=== PATIENT | female | born 1995 | race Two or more races ===

== ENCOUNTER 2016-07-03 03:11 | Emergency (ER) | payer OTHER ==
[~2016-07-03] VITALS: Ht 157.5 cm; Wt 54.4 kg
--- NOTE | 2016-07-03 03:15 | NUR ---
BIB [facility] 78 HERE FOR "SEIZURE WHILE AT [facility] [employer] WITH BOYFRIEND". ALTERED. PLACED IN ROOM; ON OXYGEN AND MONITOR. SEIZURE PRECS IN PLACE. NO ORAL TRAUMA OR INCONTINENCE NOTED AT THIS TIME. NON DIAPHORETIC. RESP EVEN AND UNLABORED. S/O AT BEDSIDE. CARE PLAN DISCUSSED AND AWAITING MD PATEL.
--- NOTE | 2016-07-03 03:20 | NUR ---
PT HAD A 20 SEC SEIZURE AND UPON MD ARRIVAL PT HAD STOPPED SEIZING. ATIVAN WITHHELD AT THIS TIME UPON DR. CHAUDHRY. PT MONITORED CLOSELY. NO ORAL TRAUMA NOTED. NON DIAPHROETIC. RESP EVEN AND UNLABORED.
[2016-07-03] MEDS ORDERED: LACO1TAB PO (03:23)
--- NOTE | 2016-07-03 03:28 | NUR ---
UPON CHECKING ON PT AGAIN; PT WASNT IN THE ROOM. ALL MONITOR LEADS AND VS MONITOR AND PULSE OXIMETRY WERE OFF. PT AMBULATED TO RESTROOM AND WITH BOYFRIEND.
--- NOTE | 2016-07-03 03:40 | NUR ---
BACK IN ROOM. NO DISTRESS NOTED. EKG AND SHOE SPRAYER AT BEDSIDE.
[2016-07-03] MEDS ORDERED: LACOSAMIDE 50 MG TABLET PO SCH (04:00)
[2016-07-03 04:06] LABS: CALCIUM, SERUM 8.2 mg/dL (8.5-10.1)
[2016-07-03] MEDS ORDERED: phenytoin SODIUM IV 250 MG/5 ML VIAL IV ONE (04:09)
[2016-07-03] MEDS ORDERED: IV SET PRIMARY PUMP SET 1 EA INFUS.SET MC ONE (04:10)
[2016-07-03] MEDS ORDERED: IV NS 0.9% 100 ML IV ONE (04:10)
[2016-07-03] MEDS ORDERED: IV FILTER 5 MICRON 1 EA INFUS.SET MC ONE (04:17)
[2016-07-03] MEDS ORDERED: PHENYTOIN SODIUM IV 50 MG/ML VIAL IV ONE (04:30)
--- NOTE | 2016-07-03 04:32 | NUR ---
MEDICATED ORDERED. STILL MONITORED CLOSELY. RESP EVEN AND UNLABORED.
[2016-07-03 05:07] VITALS: BP 104/51
--- NOTE | 2016-07-03 05:08 | NUR ---
REMAINS RESTING WITH NO S/S OF DISTRESS. RESP EVEN AND UNLABORED. STILL MONITORED CLOSELY.
--- NOTE | 2016-07-03 05:31 | NUR ---
Patient discharged to home in stable condition. Written and verbal after care instructions given. Patient verbalizes understanding of instruction. IV removed. Catheter intact and site benign. Pressure and 4x4 applied to site. No bleeding noted. Ambulatory with a steady gait. No s/s of distress noted. Resp even and unlabored.
== END 2016-07-03 05:32 | disposition home or self-care (01) ==
LOC: ER 03:13
DX: G40.909 Epilepsy, unspecified, not intractable, without status epilepticus (principal); M54.5 Low back pain; Z91.14 Patient's other noncompliance with medication regimen
CPT/HCPCS: 36415; 80048-TC; 84703-TC; A4606; J1165; J7030; Z7610